=== PATIENT | male | born 1990 | race Caucasian/White ===

== ENCOUNTER 2021-09-08 21:49 | Emergency (ER) | payer SELFPAY ==
[2021-09-08 22:38] VITALS: BP 124/61; PULSE 88; RESP 16; TEMP 36.9; O2SAT 98; BMI 27.2
--- NOTE | 2021-09-09 00:10 | ED_ITS ---
HPI - Back Pain/Injury General Chief Complaint: Back Pain/Injury Stated Complaint: Back pain Time Seen by Provider: 09/08/21 23:32 History of Present Illness HPI Narrative: Patient complains of severe low back pain radiating to left leg with some numbness and tingling which started several days ago when he coughed and felt a sudden sharp pain with the abrupt onset a tingling, he never had any changes to bowel or bladder he has had no weakness no loss of sensation, no IV drugs no fevers Related Data Previous Rx's Medication Instructions Recorded acetaminophen 500 mg tablet 1,000 mg PO QID PRN #20 tab 09/09/21 cyclobenzaprine 5 mg tablet 5 mg PO TID PRN #14 tab 09/09/21 ibuprofen 600 mg tablet 600 mg PO Q6H PRN #20 tab 09/09/21 lidocaine 4 % topical patch 1 patch TOPICAL DAILY PRN #10 ea 09/09/21 oxycodone 10 mg tablet 10 mg PO Q6H PRN #14 tab 09/09/21 prednisone 20 mg tablet 60 mg PO DAILY 4 Days #12 tab 09/09/21 Allergies Allergy/AdvReac Type Severity Reaction Status Date / Time No Known Allergies Allergy Verified 09/08/21 22:38 Review of Systems Review of Systems: Positive for back pain radiating to left leg Negative no fever no chills no dizziness no weakness no headache no neck pain no chest pain no abdominal pain no changes to bowel or bladder no dysuria no incontinence no skin rash no loss of sensation no motor weakness Yes all other systems are reviewed and are negative [facility] Past Medical History Source: nursing notes reviewed Medical History (Updated 09/09/21 @ 00:10 by TRACY Grissom) No known health problems Social History Social History Advance Directives: No Physical Exam Vital Signs: Vital Signs: Last Vital Signs Temp 98.5 F 09/08/21 22:38 Pulse 88 09/08/21 22:38 Resp 16 09/08/21 22:38 BP 124/61 09/08/21 22:38 Pulse Ox 98 09/08/21 22:38 BMI result Body Mass Index 27.2 General appearance is no acute distress The head is normocephalic atraumatic Neck is supple The chest is clear to auscultation bilateral Abdomen soft nontender The back had lower lumbar tenderness both left and right worse on the left side no focal bony tenderness no CVA tenderness, skin was normal Extremities full range of motion x4 Motor 5/5 x4, gait is normal Sensation is bilateral symmetric Course Course Course Narrative: Patient with sciatica without neurologic deficit no changes to bowel or bladder no fevers no IV drug use is treated with prednisone analgesics and discharged Discharge Plan Discharge Clinical Impression: Lumbar radiculopathy Patient Disposition: Home, Self-Care Additional Instructions: Your symptoms are likely from a pinched nerve in your back We are starting prednisone which is an anti-inflammatory which in many cases reduce inflammation around the nerve and reduce his discomfort You can try the lidocaine patch Tylenol and Motrin are not narcotics and you can use them to control discomfort If they are not sufficient you can try oxycodone narcotic medication You can try the muscle relaxer and see if it is helpful Most of this type of back pain is self limited and improves and goes back to baseline in a reasonable amount of time Follow with primary physician for further evaluation Return any time if worse Prescriptions: New ibuprofen 600 mg tablet 600 mg PO Q6H PRN (Reason: pain) Qty: 20 RF: 0 cyclobenzaprine 5 mg tablet 5 mg PO TID PRN (Reason: muscle spasm) Qty: 14 RF: 0 prednisone 20 mg tablet 60 mg PO DAILY 4 Days Qty: 12 RF: 0 lidocaine 4 % adhesive patch,medicated 1 patch topical DAILY PRN (Reason: pain) Qty: 10 RF: 0 oxycodone 10 mg tablet 10 mg PO Q6H PRN (Reason: pain) Qty: 14 RF: 0 acetaminophen 500 mg tablet 1,000 mg PO QID PRN (Reason: pain) Qty: 20 RF: 0
[2021-09-09] MEDS: Lidocaine 4 % Patch ADH..PATCH 1 PATCH TRANSDERMA (00:13)
[2021-09-09] MEDS: Acetaminophen 325 MG TABLET 975 MG PO (00:14)
[2021-09-09] MEDS: predniSONE 20 MG TABLET 60 MG PO (00:14)
[2021-09-09] MEDS: Ibuprofen 600 MG TABLET PO (00:14)
== END 2021-09-09 00:26 | disposition home or self-care (01) ==
PROVIDERS: Emergency Provider Emergency Medicine Emergency Medical Services
DX: M54.16 Radiculopathy, lumbar region (principal)
CPT/HCPCS: 99283; 99284

== ENCOUNTER 2024-10-20 10:44 | Outpatient (REF) | payer OTHER, SELFPAY ==
[2024-10-20 14:17] LABS: MANUAL DIFF FLAG NO
[2024-10-20 14:23] LABS: Basophils Percent Auto 0.5 % (0-2); Eosinophils Absolute Auto 0.2 X10*3/uL (0.0-0.4); Eosinophils Percent Auto 2.1 % (0-4); Hematocrit 44.5 % (42.0-52.0); Hemoglobin 15.5 g/dl (14.0-18.0); Imm Gran Abs Auto 0.03 X10*3/uL (0.00-0.03); Imm Gran Pct Auto 0.4 % (0.0-0.4); Lymphocytes Absolute Auto 1.9 X10*3/uL (1.2-4.9); Lymphocytes Percent Auto 22.4 % (20-40); Mean Corpuscular HGB Conc 34.8 g/dl (31.0-36.0); Mean Corpuscular Volume 83.3 fL (80.0-98.0); Mean Platelet Volume 10.2 fL (9.4-12.4); Monocytes Absolute Auto 0.6 X10*3/uL (0.1-1.2); Monocytes Percent Auto 7.3 % (2-11); Neutrophils Absolute Auto 5.7 x10*3/uL (2.0-8.3); Neutrophils Percent Auto 67.3 % (45-73); Platelet Count 242 X10*3/uL (160-400); Red Blood Count 5.34 X10*6/uL (4.60-5.80); White Blood Count 8.5 X10*3/uL (4.8-10.8)
[2024-10-20 14:39] LABS: Alanine Aminotransferase 52 U/L (0-40); Albumin Level 4.6 g/dL (3.5-5.0); Alkaline Phosphatase 82 U/L (39-117); Anion Gap 9 (12-20); Aspartate Amino Transferase 28 U/L (5-37); Bilirubin Total 0.3 mg/dL (0.0-1.0); Blood Urea Nitrogen 10 mg/dL (9-16); Calcium 8.9 mg/dL (8.4-10.2); Carbon Dioxide 26 mmol/L (22-29); Chloride 109 mmol/L (96-108); Cholesterol 194 mg/dL (<200); Estimated Glomerular Filt Rate > 60; Glucose Random 91 mg/dL (60-115); HDL Cholesterol 39 mg/dL (>40); LDL Cholesterol Calculated 118 mg/dL (<100); Potassium 3.8 mmol/L (3.3-5.1); Sodium 140 mmol/L (135-145); Total Protein 7.4 g/dL (6.5-8.0); Triglycerides 188 mg/dL (<150)
[2024-10-20 14:59] LABS: TSH reflex Free T4 0.36 uIU/mL (0.32-4.0)
[2024-10-23 08:04] LABS: HIV AB/AG Nonreactive (Nonreactive); HIV Num 1 0.06 S/CO (0.00-0.99); ~HepC Num1 0.08 S/CO (0.00-0.79); ~Hepatitis C Antibody Nonreactive (Nonreactive)
== END 2024-10-20 10:45 | disposition home or self-care (01) ==
LOC: HO.CHCLDS 10:44
PROVIDERS: Visit Provider Internal Medicine
DX: E66.3 Overweight (principal)
CPT/HCPCS: 36415; 80053; 80061; 84443; 85025; 86803; 87389